=== PATIENT | male | born 1980 | race Two or more races ===

== ENCOUNTER 2018-08-16 21:54 | Emergency (ER) | payer SELFPAY ==
[~2018-08-16] VITALS: Ht 172.7 cm; Wt 67.0 kg
[2018-08-16 22:37] VITALS: BP 121/68
== END 2018-08-17 00:24 | disposition left against medical advice (07) ==
LOC: ER 21:54
DX: M54.2 Cervicalgia (principal); Z53.21 Procedure and treatment not carried out due to patient leaving prior to being seen by health care provider